=== PATIENT | male | born 1940 | race Hispanic/Latino ===

== ENCOUNTER → 2019-03-20 | Outpatient (CLI) | payer OTHER | END | disposition home or self-care (01) | LOC: SHCH 11:09 | PROVIDERS: ATTEND Internal Medicine Cardiovascular Disease | DX: I35.1 Nonrheumatic aortic (valve) insufficiency (principal) | CPT/HCPCS: 93306 ==

== ENCOUNTER → 2019-03-22 | Outpatient (CLI) | payer OTHER ==
[~2019-03-22] VITALS: Ht 172.7 cm; Wt 84.8 kg
[~2019-03-22] MED LIST: REGADENOSON 0.4 MG/5 ML PF SYG IVP SCH
== END | disposition home or self-care (01) ==
LOC: SHCH 08:15
PROVIDERS: ATTEND Internal Medicine Cardiovascular Disease
DX: R07.9 Chest pain, unspecified (principal); I95.9 Hypotension, unspecified
CPT/HCPCS: 78452; 93017; 96374; A9500 ×2; J2785

== ENCOUNTER → 2019-05-16 | Outpatient (CLI) | payer OTHER | END | disposition home or self-care (01) | LOC: RAH 14:24 | PROVIDERS: ATTEND Internal Medicine Cardiovascular Disease | DX: Z13.6 Encounter for screening for cardiovascular disorders (principal) | CPT/HCPCS: 75571 ==

== ENCOUNTER → 2021-10-21 | Outpatient (CLI) | payer OTHER | END | disposition home or self-care (01) | LOC: RAH 15:11 | PROVIDERS: ATTEND Internal Medicine Cardiovascular Disease | DX: R55 Syncope and collapse (principal) | CPT/HCPCS: 70450 ==

== ENCOUNTER → 2021-11-03 | Outpatient (CLI) | payer OTHER | END | disposition home or self-care (01) | LOC: SHCH 08:27 | PROVIDERS: ATTEND Internal Medicine Cardiovascular Disease | DX: I25.10 Atherosclerotic heart disease of native coronary artery without angina pectoris (principal) | CPT/HCPCS: 78452; 93017; 96374; A9500 ×2; J2785 ==

== ENCOUNTER 2022-11-24 07:52 | Day surgery (SDC) | payer OTHER ==
[2022-11-22 12:31] LABS: BASOPHILS % (AUTO) 0.4 % (0.0-5.0); EOSINOPHILS % (AUTO) 1.2 % (0.0-8.0); HEMATOCRIT 48.2 % (42-54); LYMPHOCYTES % (AUTO) 27.8 % (21.0-51.0); MEAN CORPUSCULAR HEMOGLOBIN 30.5 pg (27.0-33.0); MEAN CORPUSCULAR HGB CONC 32.2 g/dL (32.0-36.0); MEAN CORPUSCULAR VOLUME 94.7 fL (79-99); MONOCYTES % (AUTO) 5.2 % (3.0-13.0); PLATELET COUNT (AUTO) 164 K/uL (130-400); RED BLOOD CELL COUNT(AUTO) 5.09 MIL/uL (4.50-6.20); RED CELL DISTRIBUTION WIDTH 13.2 % (11.0-15.5); WHITE BLOOD COUNT (AUTO) 8.4 K/uL (4.8-10.8)
[2022-11-22 12:33] LABS: APPEARANCE,URINE CLEAR (CLEAR); BILIRUBIN,URINE NEGATIVE (NEGATIVE); COLOR,URINE LIGHT-YELLOW (YELLOW); GLUCOSE, URINE (UA) NEGATIVE (NEGATIVE); KETONES,URINE NEGATIVE (NEGATIVE); LEUKOCYTE ESTERASE ,URINE NEGATIVE Leu/uL (NEGATIVE); NITRATE,URINE NEGATIVE (NEGATIVE); OCCULT BLOOD,URINE NEGATIVE (NEGATIVE); PH,URINE 5.5 (5.0-8.0); PROTEIN,URINE NEGATIVE (NEGATIVE); UROBILINOGEN,URINE 0.2 mg/dL (0.2-1.0)
[2022-11-22 12:41] LABS: PROTHROMBIN TIME 10.9 SEC (9.6-11.6)
[2022-11-22 12:42] LABS: PARTIAL THROMBOPLASTIN TIME 28.8 SEC (26.3-35.5)
[2022-11-22 12:46] LABS: CREATININE 0.9 mg/dL (0.5-1.5); POTASSIUM 4.1 mmol/L (3.5-5.1)
[2022-11-22 12:48] LABS: B-TYPE NATRIURETIC PEPTIDE 34 pg/mL (0-100)
[2022-11-22 13:03] VITALS: BP 152/70
[2022-11-24] VITALS (10 sets, daily range): BP systolic 102–137; BP diastolic 56–82
[~2022-11-24] VITALS: Ht 172.7 cm; Wt 78.5 kg
[~2022-11-24 07:52] MED LIST changes: +BETA1TAB20 PO; +LISI30TA4 PO; +METO-391 PO; -REGADENOSON 0.4 MG/5 ML PF SYG IVP SCH; +ROSU40TA21 PO
[2022-11-24] MEDS ORDERED: 0.9%NACL 1000ML 1,000 ML IV ONE (09:01)
[2022-11-24] MEDS ORDERED: IOHEXOL 350 MG/ML 100ML INFUS..BTL IV ONE (12:59)
[2022-11-24] MEDS ORDERED: NITROGLYCERIN 50MG VIAL ONE (12:59)
[2022-11-24] MEDS ORDERED: LIDOCAINE HCL 400MG/20ML VIAL ONE (12:59)
[2022-11-24] MEDS ORDERED: IOHEXOL-350 50ML VIAL IV ONE (13:14)
[2022-11-24] MEDS ORDERED: HEPARIN 10,000 UNIT/10ML (1,000 UNIT/ML) VIAL ONE (13:27)
[2022-11-24] MEDS ORDERED: HYDRALAZINE 20MG/ML VIAL ONE ×2 (13:36→13:45)
== END 2022-11-24 17:30 | disposition home or self-care (01) ==
LOC: DAH 07:52
PROVIDERS: ATTEND Internal Medicine Cardiovascular Disease
DX: I25.119 Atherosclerotic heart disease of native coronary artery with unspecified angina pectoris (principal); I10 Essential (primary) hypertension; E78.5 Hyperlipidemia, unspecified; E11.40 Type 2 diabetes mellitus with diabetic neuropathy, unspecified; Z82.49 Family history of ischemic heart disease and other diseases of the circulatory system; Z83.3 Family history of diabetes mellitus; Z90.49 Acquired absence of other specified parts of digestive tract; Z96.653 Presence of artificial knee joint, bilateral; Z79.01 Long term (current) use of anticoagulants; Z79.899 Other long term (current) drug therapy; Z98.890 Other specified postprocedural states
CPT/HCPCS: 80048; 83880; 85025; 85610; 85730; 81003; 36415; 71045; 93005; 93454; 93571; 82948 ×3; C1887; C1894; C1760; C1769; J3490; J7030; J0360 ×2; J1644 ×2; Q9967; A4215; A4222; A4221; A4663; A4216; A4606; Q9965; A4223 ×3

== ENCOUNTER 2024-03-23 23:37 | Emergency (ER) | payer OTHER ==
[~2024-03-23] VITALS: Ht 172.7 cm; Wt 78.5 kg
[~2024-03-23 23:37] MED LIST changes: -ROSU40TA21 PO; +ROSU40TA88 PO
[2024-03-23 23:49] VITALS: BP 163/79; PULSE 60; RESP 16; TEMP 97.2; O2SAT 98
[2024-03-24] MEDS: acetaMINOPHEN 325 MG TAB PO ONE (00:23)
[2024-03-24] MEDS: ibuPROFEN 200 MG TAB PO ONE (00:24)
[2024-03-24] MEDS: acetaMINOPHEN 325 MG TAB ONE (00:29)
[2024-03-24] MEDS: ibuPROFEN 200 MG TAB ONE (00:29)
== END 2024-03-24 00:30 | disposition home or self-care (01) ==
LOC: EDH 23:37
DX: H61.21 Impacted cerumen, right ear (principal); E78.00 Pure hypercholesterolemia, unspecified; I10 Essential (primary) hypertension; Z90.49 Acquired absence of other specified parts of digestive tract; Z98.890 Other specified postprocedural states

== ENCOUNTER 2024-09-23 04:15 | Emergency (ER) | payer OTHER ==
[~2024-09-23] VITALS: Ht 172.7 cm; Wt 78.0 kg
[2024-09-23 04:38] LABS: BASOPHILS # (AUTO) 0.03 K/uL (0.00-0.20); BASOPHILS % (AUTO) 0.4 % (0.0-5.0); EOSINOPHILS # (AUTO) 0.11 K/uL (0.00-0.70); EOSINOPHILS % (AUTO) 1.5 % (0.0-8.0); HEMATOCRIT 45.9 % (42-54); IMMATURE GRANULOCYTE ABSOLUTE 0.03 K/uL (0-1); LYMPHOCYTES # (AUTO) 1.9 K/uL (1.0-4.8); LYMPHOCYTES % (AUTO) 26.1 % (21.0-51.0); MEAN CORPUSCULAR HEMOGLOBIN 30.9 pg (27.0-33.0); MEAN CORPUSCULAR HGB CONC 32.7 g/dL (32.0-36.0); MEAN CORPUSCULAR VOLUME 94.6 fL (79-99); MONOCYTES # (AUTO) 0.5 K/uL (0.1-1.0); MONOCYTES % (AUTO) 6.6 % (3.0-13.0); NEUTROPHILS # (AUTO) 4.8 K/uL (1.8-7.7); PLATELET COUNT (AUTO) 130 K/uL (130-400); RED BLOOD CELL COUNT(AUTO) 4.85 MIL/uL (4.50-6.20); RED CELL DISTRIBUTION WIDTH 13.3 % (11.0-15.5); WHITE BLOOD COUNT (AUTO) 7.4 K/uL (4.8-10.8)
[2024-09-23 04:44] LABS: CREATININE 0.9 mg/dL (0.5-1.3); POTASSIUM 3.8 mmol/L (3.5-5.1)
--- NOTE | 2024-09-23 04:48 | ERN ---
General Chief Complaint: Chest Pain Stated Complaint: CHEST PAIN Time Seen by MD: 04:43 Source: patient History of Present Illness Initial Comments Patient is an 84-year-old male with a history of cardiovascular disease. A lot of plaques in my heart. He was awoken at 2:30 a.m. this morning with an increase in chest pain and he checked his blood pressure and it was elevated so he came to the hospital. Currently on the monitor his blood pressure is 172 systolic. He has some old nitroglycerin tablets with him but he opted not to take them because they had . He is calm sitting in the bed answering questions. Allergies: Coded Allergies: No Known Allergies (Unverified Allergy, 02/16/12) Home Meds Reported Medications Lisinopril (Lisinopril) 30 Mg Tablet, 30 MG PO HS, TAB 11/22/22 Vit A/Vit C/Vit E/Zinc/Copper (Preservision Areds Tablet) 1 Each Tablet, 1 EACH PO BID, TAB 11/22/22 Rosuvastatin Calcium (Rosuvastatin Calcium) 40 Mg Tablet, 40 MG PO HS, TAB 11/22/22 Metoprolol Succinate (Metoprolol Succinate) 50 Mg Tab.er.24h, 25 MG PO AM, TAB 11/22/22 Past Medical History Past Medical History: CAD, High Cholesterol, Hypertension Past Surgical History: Appendectomy, Cholecystectomy, Other Surgical History Other: HERNIA, LEFT KNEE Constitutional: (-) chills, (-) diaphoresis, (-) fever, (-) malaise, (-) weakness, (-) other documentation EENTM: (-) eye pain, (-) blurred vision, (-) tearing, (-) double vision, (-) ear pain, (-) ear discharge, (-) nose pain, (-) nose congestion, (-) throat pain, (-) Throat swelling, (-) mouth pain, (-) tooth pain, (-) mouth swelling, (-) other documentation Respiratory: (-) cough, (-) orthopnea, (-) short of breath, (-) stridor, (-) wheezing, (-) other documentation Cardiovascular: (+) chest pain Gastrointestinal/Abdominal: (-) nausea, (-) vomiting, (-) diarrhea, (-) abdominal pain, (-) abdominal distention, (-) constipation, (-) rectal bleeding, (-) dark stool/melena, (-) other documentation Genitourinary: (-) penile discharge, (-) dysuria, (-) frequency, (-) hematuria, (-) pain, (-) other documentation Skin: (-) laceration, (-) contusion, (-) abrasion, (-) abscess, (-) rash, (-) change in color, (-) change in hair, (-) change in nails, (-) diaphoresis, (-) dryness, (-) other documentation Neuro: (-) altered mental status, (-) headache, (-) syncope, (-) paralysis, (-) numbness, (-) seizure, (-) pre-existing deficit, (-) tremors, (-) weakness, (-) dizziness, (-) slurred speech, (-) vertigo, (-) other documentation Physical Exam General Appearance: (+) mild distress Orientation: (+) alert Head/Face Trauma: No Eye: bilateral eye normal inspection, bilateral eye PERRL, bilateral eye EOMI Ear, Nose, Throat: (+) hearing grossly normal, (+) normal ENT inspection Neck: (+) normal inspection, (+) supple, (+) full range of motion, (+) no JVD Respiratory: (+) chest non-tender, (+) lungs clear, (+) well ventilated Heart: (+) regular, (+) no gallop Vascular: (+) no edema, (+) normal peripheral pulse Gastrointestinal: (+) soft, (+) non-tender, (+) bowel sound present Extremities: (+) normal range of motion, (+) non-tender, (+) normal inspection Results Laboratory and Microbiology Lab and Micro Result Laboratory Tests Test 09/23/24 04:27 09/23/24 04:35 White Blood Count 7.4 K/uL (4.8-10.8) Red Blood Count 4.85 MIL/uL (4.50-6.20) Hemoglobin 15.0 g/dL (14.0-18.0) Hematocrit 45.9 % (42-54) Mean Corpuscular Volume 94.6 fL (79-99) Mean Corpuscular Hemoglobin 30.9 pg (27.0-33.0) Mean Corpuscular Hemoglobin Concent 32.7 g/dL (32.0-36.0) Red Cell Distribution Width 13.3 % (11.0-15.5) Platelet Count 130 K/uL (130-400) Mean Platelet Volume 12.2 fL (7.5-10.5) H Immature Granulocyte % (Auto) 0.4 % (0-1) Neutrophils (%) (Auto) 65.0 % (40.0-77.0) Lymphocytes (%) (Auto) 26.1 % (21.0-51.0) Monocytes (%) (Auto) 6.6 % (3.0-13.0) Eosinophils (%) (Auto) 1.5 % (0.0-8.0) Basophils (%) (Auto) 0.4 % (0.0-5.0) Neutrophils # (Auto) 4.8 K/uL (1.8-7.7) Lymphocytes # (Auto) 1.9 K/uL (1.0-4.8) Monocytes # (Auto) 0.5 K/uL (0.1-1.0) Eosinophils # (Auto) 0.11 K/uL (0.00-0.70) Basophils # (Auto) 0.03 K/uL (0.00-0.20) Absolute Immature Granulocyte (auto 0.03 K/uL (0-1) Nucleated Red Blood Cells 0.0 % (0.0-0.19) Sodium Level 143 mmol/L (136-145) Potassium Level 3.8 mmol/L (3.5-5.1) Chloride Level 109 mmol/L (101-111) Carbon Dioxide Level 27 mmol/L (21-32) Blood Urea Nitrogen 8 mg/dL (7-18) Creatinine 0.9 mg/dL (0.5-1.3) Glomerular Filtration Rate Calc 85 mL/min (>90) Random Glucose 94 mg/dL (70-105) Total Calcium 8.6 mg/dL (8.5-10.1) Total Creatine Kinase 54 U/L (21-232) Troponin I High Sensitivity 17 ng/L (4-75) C-Reactive Protein, Quantitative < 0.50 mg/L (0.5-3.0) L B-Type Natriuretic Peptide 46 pg/mL (0-100) Procalcitonin < 0.05 ng/mL (0.05-0.5) L Urine Color COLORLESS (YELLOW) Urine Appearance CLEAR (CLEAR) Urine pH 5.5 (5.0-8.0) Urine Specific [place] 1.005 (1.001-1.031) Urine Protein NEGATIVE mg/dL (NEGATIVE) Urine Glucose (UA) NEGATIVE mg/dL (NEGATIVE) Urine Ketones NEGATIVE mg/dL (NEGATIVE) Urine Occult Blood NEGATIVE (NEGATIVE) Urine Nitrate NEGATIVE (NEGATIVE) Urine Bilirubin NEGATIVE mg/dL (NEGATIVE) Urine Urobilinogen 0.2 mg/dL (0.2-1.0) Urine Leukocyte Esterase NEGATIVE Po/uL MDM 84-year-old male woken from sleep with chest pain but no other symptoms. No shortness of breath no fevers no chills. He has high blood pressure on the monitor. We will do the standard cardiac workup including chest x-ray chemistry panel cardiac enzymes EKG. Patient's workup has been negative to date with a normal CBC and no left shift normal chemistry with no elevated cardiac enzymes and a normal UA with no evidence of infection. Chest x-ray does show bilateral lower lobe increased infiltrates although it is a poor study. I will order a CRP and a procalcitonin just to make sure patient has no bacterial infections. I am also giving him a L of fluid for dehydration. ED Course Orders Procedure Category Date Status Time Vital Signs Per CPOE 09/23/24 Transmitted Routine 04:18 B-Type Natriuretic LAB 09/23/24 Complete Peptide 04:18 Chest 1vw RAD 09/23/24 Resulted 04:18 12 Lead Ekg Tracing- EKG 09/23/24 Resulted Technical 04:18 Oxygen By Nc/Pulse Ox CPOE 09/23/24 Transmitted 04:18 Maintain Iv CPOE 09/23/24 Transmitted 04:18 Iv Insertion CPOE 09/23/24 Transmitted 04:18 Cardiac Monitoring CPOE 09/23/24 Transmitted 04:18 Pulse Oximetry With CPOE 09/23/24 Transmitted Vs And Prn 04:18 Cbc With Differential LAB 09/23/24 Complete 04:18 Activity: Br W/Brp CPOE 09/23/24 Transmitted With Assist 04:18 Creatine Kinase, Total LAB 09/23/24 Complete 04:18 Troponin I High LAB 09/23/24 Complete Sensitivity 04:18 Urinalysis Profile LAB 09/23/24 Complete 04:18 Basic Metabolic Panel LAB 09/23/24 Complete 04:18 Lactated Ringers PHA 09/23/24 Complete 1000ml (Lactated 05:13 Crp Quantitative LAB 09/23/24 Complete 05:33 Procalcitonin LAB 09/23/24 Complete 05:33 Current Medications Medications (Trade) Dose Ordered Sig/Hemant Route PRN Reason Start Time Stop Time Status Last Admin Dose Admin Lactated Ringer's (Lactated Ringers 1000ml) 1,000 ml BOLUS STAT IV 09/23/24 05:13 09/23/24 05:19 DC 09/23/24 05:22 Vital Signs Date Time Temp Pulse Resp B/P (MAP) Pulse Ox O2 Delivery O2 Flow Rate FiO2 09/23/24 09:43 98.1 58 22 150/72 98 Room Air* 0 09/23/24 07:43 97.7 57 21 152/69 100 Room Air* 0 09/23/24 05:07 98.2 57 16 150/69 100 Nasal Cannula* 2 28 09/23/24 04:35 98.2 57 163/74 98 Room Air* 0 21 09/23/24 04:24 59 16 172/77 98 Room Air* 0 09/23/24 04:16 98.4 56 18 169/79 96 Room Air DX & DISP Disposition: Discharge Departure Condition: Stable Referrals: JAYLEEN WAKEFIELD MD (PCP) NICANOR GARCIA MD Sep 23, 2024 04:48
[2024-09-23 04:59] LABS: B-TYPE NATRIURETIC PEPTIDE 46 pg/mL (0-100)
[2024-09-23 05:21] LABS: APPEARANCE,URINE CLEAR (CLEAR); BILIRUBIN,URINE NEGATIVE (NEGATIVE); COLOR,URINE COLORLESS (YELLOW); GLUCOSE, URINE (UA) NEGATIVE (NEGATIVE); KETONES,URINE NEGATIVE (NEGATIVE); LEUKOCYTE ESTERASE ,URINE NEGATIVE Leu/uL (NEGATIVE); NITRATE,URINE NEGATIVE (NEGATIVE); OCCULT BLOOD,URINE NEGATIVE (NEGATIVE); PH,URINE 5.5 (5.0-8.0); PROTEIN,URINE NEGATIVE (NEGATIVE); UROBILINOGEN,URINE 0.2 mg/dL (0.2-1.0)
[2024-09-23] MEDS: LACTATED RINGERS 1000ML IV STA (05:22)
[2024-09-23 05:25] LABS: ADD UA MICROSCOPIC NO
--- NOTE | 2024-09-23 09:14 | HMCIMG ---
INDICATION: CHEST PAIN TECHNIQUE: CHEST 1VW COMPARISON: 11/23/2019 FINDINGS AND IMPRESSION: Prominent bilateral interstitial markings which may represent bronchitis or vascular congestion in the proper clinical setting. Mild cardiomegaly Mild degenerative changes of the spine. The visualized upper abdomen appears unremarkable.
[2024-09-23 09:43] VITALS: BP 150/72; PULSE 58; RESP 22; TEMP 98; O2SAT 98
--- NOTE | 2024-09-23 13:07 | EKG ---
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
== END 2024-09-23 09:38 | disposition home or self-care (01) ==
LOC: EDH 04:15
DX: R07.89 Other chest pain (principal); E78.00 Pure hypercholesterolemia, unspecified; I10 Essential (primary) hypertension; I25.10 Atherosclerotic heart disease of native coronary artery without angina pectoris; Z79.899 Other long term (current) drug therapy; Z90.49 Acquired absence of other specified parts of digestive tract; Z98.890 Other specified postprocedural states
CPT/HCPCS: 99285; 96360; 96361; 71045; 82550; 84484; 80048; 83880; 85025; 86140; 81003; 36415; 93005; 84145; J7120

== ENCOUNTER → 2025-04-18 | Outpatient (CLI) | payer OTHER ==
--- NOTE | 2025-04-19 13:05 | HMCIMG ---
EXAM: CT Cardiac calcium scoring. CLINICAL HISTORY: Screening. TECHNIQUE: Thin collimated axial CT cardiac images were obtained. A CT scan is done according to ALARA (As Low As Reasonably Achievable). CONTRAST: None. COMPARISON: None provided. FINDINGS: Calcium Score: VESSEL Number of lesions Volume mm3 Equi. Mass/mg Calcium score LM 4 379.5 - 460.8 LAD 5 707.8 - 882.7 LCX 4 41.2 - 55.5 RCA 9 1149.1 - 1466.4 Total 22 2277.5 - 2865.4 IMPRESSION: The total calcium score is 2865.4. 86th percentile. 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 /[place]
== END | disposition home or self-care (01) ==
LOC: RAH 12:58
PROVIDERS: ATTEND Internal Medicine Cardiovascular Disease
DX: Z13.6 Encounter for screening for cardiovascular disorders (principal); K46.9 Unspecified abdominal hernia without obstruction or gangrene
CPT/HCPCS: 75571